=== PATIENT | male | born 1960 | race African-American/Black ===

== ENCOUNTER 2021-10-11 11:13 | Inpatient (IN) | payer OTHER ==
[2021-10-11 12:45] LABS: EOS % 3.4 % (0-4.5); HEMATOCRIT 36.1 % (35.4-49); HEMOGLOBIN 11.7 GM/dL (11.7-16.9); LYMPH % 18.1 % (8-40); MCH 34.2 pg (25.7-33.7); MCHC 32.4 g/dl (32.0-35.9); MEAN CELL VOLUME 105.6 fl (80-96); MEAN PLT VOLUME 8.5 fl (7.5-11.1); MONO % 11.4 % (3.8-10.2); NEUT % 65.1 % (42.8-82.8); PLATELET COUNT 174 10^3/uL (134-434); RBC 3.42 M/mm3 (4.00-5.60); RDW 15.1 % (11.9-15.9); WHITE BLOOD COUNT 5.1 K/mm3 (4.0-10.0)
[2021-10-11 12:56] LABS: BLOOD UREA NITROGEN 18.9 mg/dL (7-18); CALCIUM 9.4 mg/dL (8.5-10.1)
[2021-10-11 12:58] LABS: CREATININE 1.4 mg/dL (0.55-1.3)
[2021-10-11 13:01] LABS: BILIRUBIN,TOTAL 0.9 mg/dL (0.2-1); TOT PROT 7.4 g/dl (6.4-8.2)
[2021-10-11 13:02] LABS: ALBUMIN 3.8 g/dl (3.4-5.0)
[2021-10-11] MEDS: SENNOSIDES 8.6MG TABLET (FP) PO SCH (21:56)
[2021-10-11] MEDS: DOCUSATE SODIUM 100 MG CAPSULE (FP) PO SCH (21:57)
[2021-10-11] MEDS: ATORVASTATIN CA 80 MG TABLET (FP) PO SCH (21:58)
[2021-10-11] MEDS: CARVEDILOL 6.25 MG TABLET (FP) PO SCH (21:58)
[2021-10-11] MEDS: APIXABAN 5 MG TABLET PO SCH (21:58)
[2021-10-12] MEDS: LEVOTHYROXINE NA 50 MCG TABLET (FP) PO SCH (06:06)
[2021-10-12 06:24] LABS: EPI CELLS 2 /uL (0-25.1); HYALINE CASTS 0 /uL (0-3.1); URINE APPEARANCE CLEAR; URINE BACTERIA 12 /uL (0-1359); URINE BILIRUBIN NEGATIVE (NEGATIVE); URINE COLOR YELLOW; URINE GLUCOSE (UA) NEGATIVE (NEGATIVE); URINE KETONE NEGATIVE (NEGATIVE); URINE LEUK ESTERASE TRACE (NEGATIVE); URINE NITRITE NEGATIVE (NEGATIVE); URINE PROTEIN NEGATIVE (NEGATIVE); URINE RBC 1 /uL (0-23.9); URINE WBC 4 /uL (0-25.8)
[2021-10-12] MEDS: CARVEDILOL 6.25 MG TABLET (FP) PO SCH ×2 (09:52→21:36)
[2021-10-12] MEDS: LISINOPRIL 10 MG TABLET PO SCH (09:52)
[2021-10-12] MEDS: APIXABAN 5 MG TABLET PO SCH ×2 (09:52→21:36)
[2021-10-12] MEDS: CLOPIDOGREL BISULFATE 75 MG TABLET (FP) PO SCH (09:52)
[2021-10-12] MEDS: SPIRONOLACTONE 25 MG TABLET PO SCH (09:52)
[2021-10-12] MEDS: NICOTINE 21 MG/24 HOURS TOPICAL PATCH TD SCH (09:53)
[2021-10-12] MEDS ORDERED: ASPIRIN 81 MG CHEWABLE TABLETS PO SCH (10:00)
[2021-10-12] MEDS: DIVALPROEX NA *ER* EXTEND REL 250 MG TABLET.SA PO SCH ×2 (13:58→21:37)
[2021-10-12] MEDS: SENNOSIDES 8.6MG TABLET (FP) PO SCH (21:36)
[2021-10-12] MEDS: ATORVASTATIN CA 80 MG TABLET (FP) PO SCH (21:36)
[2021-10-12] MEDS: DOCUSATE SODIUM 100 MG CAPSULE (FP) PO SCH (21:36)
[2021-10-12] MEDS ORDERED: SODIUM CHLORIDE 500 ML IV STA (21:49)
[2021-10-13] MEDS: DIVALPROEX NA *ER* EXTEND REL 250 MG TABLET.SA PO SCH ×3 (05:21→21:45)
[2021-10-13] MEDS: LEVOTHYROXINE NA 50 MCG TABLET (FP) PO SCH (06:21)
[2021-10-13] MEDS: CARVEDILOL 6.25 MG TABLET (FP) PO SCH ×2 (09:45→21:45)
[2021-10-13] MEDS: SPIRONOLACTONE 25 MG TABLET PO SCH (09:45)
[2021-10-13] MEDS: LISINOPRIL 10 MG TABLET PO SCH (09:46)
[2021-10-13] MEDS: TAMSULOSIN HCL 0.4 MG CAP PO SCH (11:01)
[2021-10-13] MEDS: APIXABAN 5 MG TABLET PO SCH ×2 (11:01→21:45)
[2021-10-13] MEDS: CLOPIDOGREL BISULFATE 75 MG TABLET (FP) PO SCH (11:02)
[2021-10-13] MEDS: NICOTINE 21 MG/24 HOURS TOPICAL PATCH TD SCH ×2 (11:02→11:04)
[2021-10-13] MEDS: DOCUSATE SODIUM 100 MG CAPSULE (FP) PO SCH (21:44)
[2021-10-13] MEDS: SENNOSIDES 8.6MG TABLET (FP) PO SCH (21:45)
[2021-10-13] MEDS: ATORVASTATIN CA 80 MG TABLET (FP) PO SCH (21:45)
[2021-10-14] MEDS: DIVALPROEX NA *ER* EXTEND REL 250 MG TABLET.SA PO SCH ×3 (06:21→23:27)
[2021-10-14] MEDS: LEVOTHYROXINE NA 50 MCG TABLET (FP) PO SCH (06:21)
[2021-10-14] MEDS: CARVEDILOL 6.25 MG TABLET (FP) PO SCH ×2 (11:17→23:27)
[2021-10-14] MEDS: APIXABAN 5 MG TABLET PO SCH ×2 (11:17→23:27)
[2021-10-14] MEDS: SPIRONOLACTONE 25 MG TABLET PO SCH (11:17)
[2021-10-14] MEDS: LISINOPRIL 10 MG TABLET PO SCH (11:18)
[2021-10-14] MEDS: CLOPIDOGREL BISULFATE 75 MG TABLET (FP) PO SCH (11:18)
[2021-10-14] MEDS: NICOTINE 21 MG/24 HOURS TOPICAL PATCH TD SCH (11:18)
[2021-10-14] MEDS: TAMSULOSIN HCL 0.4 MG CAP PO SCH (11:18)
[2021-10-14] MEDS: DOCUSATE SODIUM 100 MG CAPSULE (FP) PO SCH (23:27)
[2021-10-14] MEDS: ATORVASTATIN CA 80 MG TABLET (FP) PO SCH (23:27)
[2021-10-14] MEDS: SENNOSIDES 8.6MG TABLET (FP) PO SCH (23:27)
[2021-10-15] MEDS: LEVOTHYROXINE NA 50 MCG TABLET (FP) PO SCH (06:03)
[2021-10-15] MEDS: DIVALPROEX NA *ER* EXTEND REL 250 MG TABLET.SA PO SCH ×3 (06:03→22:02)
[2021-10-15] MEDS: NICOTINE 21 MG/24 HOURS TOPICAL PATCH TD SCH (11:54)
[2021-10-15] MEDS: TAMSULOSIN HCL 0.4 MG CAP PO SCH (11:56)
[2021-10-15] MEDS: CLOPIDOGREL BISULFATE 75 MG TABLET (FP) PO SCH (11:56)
[2021-10-15] MEDS: LISINOPRIL 10 MG TABLET PO SCH (11:56)
[2021-10-15] MEDS: SPIRONOLACTONE 25 MG TABLET PO SCH (11:56)
[2021-10-15] MEDS: APIXABAN 5 MG TABLET PO SCH ×2 (11:56→22:02)
[2021-10-15] MEDS: CARVEDILOL 6.25 MG TABLET (FP) PO SCH ×2 (11:56→22:01)
[2021-10-15] MEDS: DOCUSATE SODIUM 100 MG CAPSULE (FP) PO SCH (22:01)
[2021-10-15] MEDS: SENNOSIDES 8.6MG TABLET (FP) PO SCH (22:02)
[2021-10-15] MEDS: ATORVASTATIN CA 80 MG TABLET (FP) PO SCH (22:02)
[2021-10-16] MEDS: DIVALPROEX NA *ER* EXTEND REL 250 MG TABLET.SA PO SCH ×3 (05:53→22:10)
[2021-10-16] MEDS: LEVOTHYROXINE NA 50 MCG TABLET (FP) PO SCH (06:01)
[2021-10-16] MEDS: APIXABAN 5 MG TABLET PO SCH ×2 (10:49→22:11)
[2021-10-16] MEDS: CLOPIDOGREL BISULFATE 75 MG TABLET (FP) PO SCH (10:49)
[2021-10-16] MEDS: TAMSULOSIN HCL 0.4 MG CAP PO SCH (10:58)
[2021-10-16] MEDS: NICOTINE 21 MG/24 HOURS TOPICAL PATCH TD SCH (10:58)
[2021-10-16] MEDS: SPIRONOLACTONE 25 MG TABLET PO SCH (11:01)
[2021-10-16] MEDS: LISINOPRIL 10 MG TABLET PO SCH (11:02)
[2021-10-16] MEDS: CARVEDILOL 6.25 MG TABLET (FP) PO SCH ×2 (11:02→22:10)
[2021-10-16] MEDS: DOCUSATE SODIUM 100 MG CAPSULE (FP) PO SCH (22:08)
[2021-10-16] MEDS: ATORVASTATIN CA 80 MG TABLET (FP) PO SCH (22:11)
[2021-10-16] MEDS: SENNOSIDES 8.6MG TABLET (FP) PO SCH (22:11)
[2021-10-17] MEDS: DIVALPROEX NA *ER* EXTEND REL 250 MG TABLET.SA PO SCH ×3 (05:32→22:55)
[2021-10-17] MEDS: LEVOTHYROXINE NA 50 MCG TABLET (FP) PO SCH (06:09)
[2021-10-17] MEDS: APIXABAN 5 MG TABLET PO SCH (09:45)
[2021-10-17] MEDS: CLOPIDOGREL BISULFATE 75 MG TABLET (FP) PO SCH (09:45)
[2021-10-17] MEDS: TAMSULOSIN HCL 0.4 MG CAP PO SCH (09:48)
[2021-10-17] MEDS: CARVEDILOL 6.25 MG TABLET (FP) PO SCH ×2 (09:49→22:55)
[2021-10-17] MEDS: SPIRONOLACTONE 25 MG TABLET PO SCH (09:49)
[2021-10-17] MEDS: NICOTINE 21 MG/24 HOURS TOPICAL PATCH TD SCH (09:50)
[2021-10-17] MEDS: LISINOPRIL 10 MG TABLET PO SCH (09:50)
[2021-10-17] MEDS: DOCUSATE SODIUM 100 MG CAPSULE (FP) PO SCH (22:54)
[2021-10-17] MEDS: SENNOSIDES 8.6MG TABLET (FP) PO SCH (22:55)
[2021-10-17] MEDS: ATORVASTATIN CA 80 MG TABLET (FP) PO SCH (22:55)
[2021-10-18] MEDS: APIXABAN 5 MG TABLET PO SCH ×3 (01:04→22:47)
[2021-10-18] MEDS: LEVOTHYROXINE NA 50 MCG TABLET (FP) PO SCH (06:00)
[2021-10-18] MEDS: DIVALPROEX NA *ER* EXTEND REL 250 MG TABLET.SA PO SCH ×3 (06:00→22:47)
[2021-10-18] MEDS: TAMSULOSIN HCL 0.4 MG CAP PO SCH (08:32)
[2021-10-18] MEDS: CLOPIDOGREL BISULFATE 75 MG TABLET (FP) PO SCH (11:02)
[2021-10-18] MEDS: LISINOPRIL 10 MG TABLET PO SCH (11:02)
[2021-10-18] MEDS: NICOTINE 21 MG/24 HOURS TOPICAL PATCH TD SCH (11:02)
[2021-10-18] MEDS: CARVEDILOL 6.25 MG TABLET (FP) PO SCH ×2 (11:02→22:47)
[2021-10-18] MEDS: SPIRONOLACTONE 25 MG TABLET PO SCH (11:02)
[2021-10-18] MEDS: DOCUSATE SODIUM 100 MG CAPSULE (FP) PO SCH (22:47)
[2021-10-18] MEDS: ATORVASTATIN CA 80 MG TABLET (FP) PO SCH (22:47)
[2021-10-18] MEDS: SENNOSIDES 8.6MG TABLET (FP) PO SCH (22:47)
[2021-10-19] MEDS: LEVOTHYROXINE NA 50 MCG TABLET (FP) PO SCH (06:29)
[2021-10-19] MEDS: DIVALPROEX NA *ER* EXTEND REL 250 MG TABLET.SA PO SCH ×3 (06:29→21:14)
[2021-10-19] MEDS: LISINOPRIL 10 MG TABLET PO SCH (10:43)
[2021-10-19] MEDS: TAMSULOSIN HCL 0.4 MG CAP PO SCH (10:43)
[2021-10-19] MEDS: SPIRONOLACTONE 25 MG TABLET PO SCH (10:43)
[2021-10-19] MEDS: CARVEDILOL 6.25 MG TABLET (FP) PO SCH ×2 (10:43→21:14)
[2021-10-19] MEDS: NICOTINE 21 MG/24 HOURS TOPICAL PATCH TD SCH (10:43)
[2021-10-19] MEDS: CLOPIDOGREL BISULFATE 75 MG TABLET (FP) PO SCH (10:43)
[2021-10-19] MEDS: APIXABAN 5 MG TABLET PO SCH ×2 (10:57→21:14)
[2021-10-19] MEDS: DOCUSATE SODIUM 100 MG CAPSULE (FP) PO SCH (21:14)
[2021-10-19] MEDS: ATORVASTATIN CA 80 MG TABLET (FP) PO SCH (21:14)
[2021-10-19] MEDS: SENNOSIDES 8.6MG TABLET (FP) PO SCH (21:15)
[2021-10-20] MEDS: DIVALPROEX NA *ER* EXTEND REL 250 MG TABLET.SA PO SCH ×3 (06:16→21:43)
[2021-10-20] MEDS: LEVOTHYROXINE NA 50 MCG TABLET (FP) PO SCH (06:16)
[2021-10-20] MEDS: SPIRONOLACTONE 25 MG TABLET PO SCH (09:35)
[2021-10-20] MEDS: APIXABAN 5 MG TABLET PO SCH ×2 (09:35→21:43)
[2021-10-20] MEDS: CARVEDILOL 6.25 MG TABLET (FP) PO SCH ×2 (09:35→21:43)
[2021-10-20] MEDS: CLOPIDOGREL BISULFATE 75 MG TABLET (FP) PO SCH (09:35)
[2021-10-20] MEDS: TAMSULOSIN HCL 0.4 MG CAP PO SCH (09:36)
[2021-10-20] MEDS: LISINOPRIL 10 MG TABLET PO SCH (09:36)
[2021-10-20] MEDS: NICOTINE 21 MG/24 HOURS TOPICAL PATCH TD SCH (09:36)
[2021-10-20] MEDS ORDERED: ACETAMINOPHEN 325 MG TABLET (FP) PO ONE (15:30)
[2021-10-20] MEDS: ATORVASTATIN CA 80 MG TABLET (FP) PO SCH (21:43)
[2021-10-20] MEDS: DOCUSATE SODIUM 100 MG CAPSULE (FP) PO SCH (21:43)
[2021-10-20] MEDS: SENNOSIDES 8.6MG TABLET (FP) PO SCH (21:43)
[2021-10-21] MEDS: DIVALPROEX NA *ER* EXTEND REL 250 MG TABLET.SA PO SCH ×3 (05:43→23:10)
[2021-10-21] MEDS: LEVOTHYROXINE NA 50 MCG TABLET (FP) PO SCH (06:00)
[2021-10-21] MEDS: TAMSULOSIN HCL 0.4 MG CAP PO SCH (08:53)
[2021-10-21] MEDS: CLOPIDOGREL BISULFATE 75 MG TABLET (FP) PO SCH (10:00)
[2021-10-21] MEDS: SPIRONOLACTONE 25 MG TABLET PO SCH (10:00)
[2021-10-21] MEDS: LISINOPRIL 10 MG TABLET PO SCH (10:00)
[2021-10-21] MEDS: APIXABAN 5 MG TABLET PO SCH ×2 (10:00→23:10)
[2021-10-21] MEDS: NICOTINE 21 MG/24 HOURS TOPICAL PATCH TD SCH (10:00)
[2021-10-21] MEDS: CARVEDILOL 6.25 MG TABLET (FP) PO SCH ×2 (10:00→23:10)
[2021-10-21] MEDS: DOCUSATE SODIUM 100 MG CAPSULE (FP) PO SCH (23:09)
[2021-10-21] MEDS: ATORVASTATIN CA 80 MG TABLET (FP) PO SCH (23:10)
[2021-10-21] MEDS: SENNOSIDES 8.6MG TABLET (FP) PO SCH (23:10)
[2021-10-22] MEDS: DIVALPROEX NA *ER* EXTEND REL 250 MG TABLET.SA PO SCH ×3 (06:12→22:13)
[2021-10-22] MEDS: LEVOTHYROXINE NA 50 MCG TABLET (FP) PO SCH (06:12)
[2021-10-22] MEDS: TAMSULOSIN HCL 0.4 MG CAP PO SCH (08:44)
[2021-10-22] MEDS ORDERED: MAGNESIUM SULF 50% (8.12 MEQ/2 ML-1 GM VIAL) IVPB ONE (09:11)
[2021-10-22] MEDS ORDERED: MAGNESIUM OXIDE 400 MG TABLET (FP) PO ONE (10:06)
[2021-10-22] MEDS: SPIRONOLACTONE 25 MG TABLET PO SCH (10:28)
[2021-10-22] MEDS: CARVEDILOL 6.25 MG TABLET (FP) PO SCH ×3 (10:28→22:14)
[2021-10-22] MEDS: APIXABAN 5 MG TABLET PO SCH ×2 (10:28→22:13)
[2021-10-22] MEDS: CLOPIDOGREL BISULFATE 75 MG TABLET (FP) PO SCH (10:28)
[2021-10-22] MEDS: NICOTINE 21 MG/24 HOURS TOPICAL PATCH TD SCH (10:29)
[2021-10-22] MEDS: SENNOSIDES 8.6MG TABLET (FP) PO SCH (22:13)
[2021-10-22] MEDS: ATORVASTATIN CA 80 MG TABLET (FP) PO SCH (22:13)
[2021-10-22] MEDS: DOCUSATE SODIUM 100 MG CAPSULE (FP) PO SCH (22:14)
[2021-10-23] MEDS: DIVALPROEX NA *ER* EXTEND REL 250 MG TABLET.SA PO SCH ×3 (06:18→21:27)
[2021-10-23] MEDS: LEVOTHYROXINE NA 50 MCG TABLET (FP) PO SCH (06:18)
[2021-10-23] MEDS: SPIRONOLACTONE 25 MG TABLET PO SCH (10:35)
[2021-10-23] MEDS: CARVEDILOL 6.25 MG TABLET (FP) PO SCH ×2 (10:35→21:27)
[2021-10-23] MEDS: APIXABAN 5 MG TABLET PO SCH ×2 (10:38→21:27)
[2021-10-23] MEDS: CLOPIDOGREL BISULFATE 75 MG TABLET (FP) PO SCH (10:38)
[2021-10-23] MEDS: NICOTINE 21 MG/24 HOURS TOPICAL PATCH TD SCH (10:39)
[2021-10-23] MEDS: TAMSULOSIN HCL 0.4 MG CAP PO SCH (10:39)
[2021-10-23] MEDS: SENNOSIDES 8.6MG TABLET (FP) PO SCH (21:27)
[2021-10-23] MEDS: ATORVASTATIN CA 80 MG TABLET (FP) PO SCH (21:27)
[2021-10-23] MEDS: DOCUSATE SODIUM 100 MG CAPSULE (FP) PO SCH (21:27)
[2021-10-24] MEDS: DIVALPROEX NA *ER* EXTEND REL 250 MG TABLET.SA PO SCH ×3 (06:24→21:15)
[2021-10-24] MEDS: LEVOTHYROXINE NA 50 MCG TABLET (FP) PO SCH (06:25)
[2021-10-24] MEDS: CLOPIDOGREL BISULFATE 75 MG TABLET (FP) PO SCH (09:49)
[2021-10-24] MEDS: APIXABAN 5 MG TABLET PO SCH ×2 (09:49→21:15)
[2021-10-24] MEDS: SPIRONOLACTONE 25 MG TABLET PO SCH (09:51)
[2021-10-24] MEDS: NICOTINE 21 MG/24 HOURS TOPICAL PATCH TD SCH (09:51)
[2021-10-24] MEDS: CARVEDILOL 6.25 MG TABLET (FP) PO SCH ×2 (09:51→21:15)
[2021-10-24] MEDS: TAMSULOSIN HCL 0.4 MG CAP PO SCH (09:52)
[2021-10-24] MEDS: DOCUSATE SODIUM 100 MG CAPSULE (FP) PO SCH (21:15)
[2021-10-24] MEDS: SENNOSIDES 8.6MG TABLET (FP) PO SCH (21:16)
[2021-10-24] MEDS: ATORVASTATIN CA 80 MG TABLET (FP) PO SCH (21:16)
[2021-10-25] MEDS: LEVOTHYROXINE NA 50 MCG TABLET (FP) PO SCH (06:43)
[2021-10-25] MEDS: DIVALPROEX NA *ER* EXTEND REL 250 MG TABLET.SA PO SCH ×3 (06:43→22:09)
[2021-10-25] MEDS: TAMSULOSIN HCL 0.4 MG CAP PO SCH (10:17)
[2021-10-25] MEDS: SPIRONOLACTONE 25 MG TABLET PO SCH (10:17)
[2021-10-25] MEDS: CARVEDILOL 6.25 MG TABLET (FP) PO SCH ×2 (10:17→22:10)
[2021-10-25] MEDS: APIXABAN 5 MG TABLET PO SCH ×2 (10:17→22:09)
[2021-10-25] MEDS: CLOPIDOGREL BISULFATE 75 MG TABLET (FP) PO SCH (10:18)
[2021-10-25] MEDS: NICOTINE 21 MG/24 HOURS TOPICAL PATCH TD SCH (10:18)
[2021-10-25] MEDS ORDERED: DOCUSATE NA 100 MG/10 ML UNIT-DOSE CUPS PO ONE (14:22)
[2021-10-25] MEDS ORDERED: LORazepam 2 MG/ML SDV VIAL IM ONE (15:21)
[2021-10-25] MEDS: LORazepam 1 MG TABLET PO PRN ×2 (15:23→15:41)
[2021-10-25] MEDS: ATORVASTATIN CA 80 MG TABLET (FP) PO SCH (22:09)
[2021-10-25] MEDS: DOCUSATE SODIUM 100 MG CAPSULE (FP) PO SCH (22:10)
[2021-10-25] MEDS: SENNOSIDES 8.6MG TABLET (FP) PO SCH (22:10)
[2021-10-26] MEDS: LEVOTHYROXINE NA 50 MCG TABLET (FP) PO SCH (06:18)
[2021-10-26] MEDS: DIVALPROEX NA *ER* EXTEND REL 250 MG TABLET.SA PO SCH ×3 (06:18→23:05)
[2021-10-26] MEDS: TAMSULOSIN HCL 0.4 MG CAP PO SCH (09:18)
[2021-10-26] MEDS: CARVEDILOL 6.25 MG TABLET (FP) PO SCH ×2 (09:18→23:05)
[2021-10-26] MEDS: SPIRONOLACTONE 25 MG TABLET PO SCH (09:18)
[2021-10-26] MEDS: NICOTINE 21 MG/24 HOURS TOPICAL PATCH TD SCH (09:19)
[2021-10-26] MEDS: APIXABAN 5 MG TABLET PO SCH ×2 (09:19→23:06)
[2021-10-26] MEDS: CLOPIDOGREL BISULFATE 75 MG TABLET (FP) PO SCH (09:19)
[2021-10-26 15:23] VITALS: BMI 21.5
[2021-10-26] MEDS: DOCUSATE SODIUM 100 MG CAPSULE (FP) PO SCH (23:05)
[2021-10-26] MEDS: SENNOSIDES 8.6MG TABLET (FP) PO SCH (23:06)
[2021-10-26] MEDS: ATORVASTATIN CA 80 MG TABLET (FP) PO SCH (23:06)
[2021-10-27] MEDS: DIVALPROEX NA *ER* EXTEND REL 250 MG TABLET.SA PO SCH ×3 (06:03→22:10)
[2021-10-27] MEDS: LEVOTHYROXINE NA 50 MCG TABLET (FP) PO SCH (06:03)
[2021-10-27] MEDS: MULTIVITAMINS (DAILY MVI) TABLET (FP) PO SCH (10:12)
[2021-10-27] MEDS: CARVEDILOL 6.25 MG TABLET (FP) PO SCH ×2 (10:12→22:09)
[2021-10-27] MEDS: TAMSULOSIN HCL 0.4 MG CAP PO SCH (10:12)
[2021-10-27] MEDS: CLOPIDOGREL BISULFATE 75 MG TABLET (FP) PO SCH (10:12)
[2021-10-27] MEDS: SPIRONOLACTONE 25 MG TABLET PO SCH (10:12)
[2021-10-27] MEDS: NICOTINE 21 MG/24 HOURS TOPICAL PATCH TD SCH (10:12)
[2021-10-27] MEDS: APIXABAN 5 MG TABLET PO SCH ×2 (10:12→22:10)
[2021-10-27] MEDS: DOCUSATE SODIUM 100 MG CAPSULE (FP) PO SCH (22:09)
[2021-10-27] MEDS: SENNOSIDES 8.6MG TABLET (FP) PO SCH (22:10)
[2021-10-27] MEDS: ATORVASTATIN CA 80 MG TABLET (FP) PO SCH (22:10)
[2021-10-28] MEDS: LEVOTHYROXINE NA 50 MCG TABLET (FP) PO SCH (06:52)
[2021-10-28] MEDS: DIVALPROEX NA *ER* EXTEND REL 250 MG TABLET.SA PO SCH ×3 (06:52→22:41)
[2021-10-28] MEDS: SPIRONOLACTONE 25 MG TABLET PO SCH (09:16)
[2021-10-28] MEDS: APIXABAN 5 MG TABLET PO SCH ×2 (09:16→22:41)
[2021-10-28] MEDS: CARVEDILOL 6.25 MG TABLET (FP) PO SCH ×2 (09:16→22:41)
[2021-10-28] MEDS: TAMSULOSIN HCL 0.4 MG CAP PO SCH (09:16)
[2021-10-28] MEDS: CLOPIDOGREL BISULFATE 75 MG TABLET (FP) PO SCH (09:17)
[2021-10-28] MEDS: NICOTINE 21 MG/24 HOURS TOPICAL PATCH TD SCH (09:17)
[2021-10-28] MEDS: MULTIVITAMINS (DAILY MVI) TABLET (FP) PO SCH (09:17)
[2021-10-28] MEDS: ATORVASTATIN CA 80 MG TABLET (FP) PO SCH (22:41)
[2021-10-28] MEDS: SENNOSIDES 8.6MG TABLET (FP) PO SCH (22:41)
[2021-10-28] MEDS: DOCUSATE SODIUM 100 MG CAPSULE (FP) PO SCH (22:41)
[2021-10-29] MEDS: DIVALPROEX NA *ER* EXTEND REL 250 MG TABLET.SA PO SCH ×3 (05:16→22:20)
[2021-10-29] MEDS: APIXABAN 5 MG TABLET PO SCH ×2 (09:44→22:20)
[2021-10-29] MEDS: CARVEDILOL 6.25 MG TABLET (FP) PO SCH ×2 (09:44→22:20)
[2021-10-29] MEDS: LEVOTHYROXINE NA 50 MCG TABLET (FP) PO SCH (09:44)
[2021-10-29] MEDS: SPIRONOLACTONE 25 MG TABLET PO SCH (09:44)
[2021-10-29] MEDS: TAMSULOSIN HCL 0.4 MG CAP PO SCH (09:44)
[2021-10-29] MEDS: NICOTINE 21 MG/24 HOURS TOPICAL PATCH TD SCH (09:45)
[2021-10-29] MEDS: CLOPIDOGREL BISULFATE 75 MG TABLET (FP) PO SCH (09:45)
[2021-10-29] MEDS: MULTIVITAMINS (DAILY MVI) TABLET (FP) PO SCH (09:45)
[2021-10-29] MEDS: ATORVASTATIN CA 80 MG TABLET (FP) PO SCH (22:20)
[2021-10-29] MEDS: DOCUSATE SODIUM 100 MG CAPSULE (FP) PO SCH (22:20)
[2021-10-29] MEDS: SENNOSIDES 8.6MG TABLET (FP) PO SCH (22:21)
[2021-10-30] MEDS: LEVOTHYROXINE NA 50 MCG TABLET (FP) PO SCH (06:41)
[2021-10-30] MEDS: DIVALPROEX NA *ER* EXTEND REL 250 MG TABLET.SA PO SCH ×3 (06:41→21:50)
[2021-10-30] MEDS: CLOPIDOGREL BISULFATE 75 MG TABLET (FP) PO SCH (09:17)
[2021-10-30] MEDS: SPIRONOLACTONE 25 MG TABLET PO SCH (09:17)
[2021-10-30] MEDS: APIXABAN 5 MG TABLET PO SCH ×2 (09:17→21:51)
[2021-10-30] MEDS: CARVEDILOL 6.25 MG TABLET (FP) PO SCH ×2 (09:17→21:50)
[2021-10-30] MEDS: NICOTINE 21 MG/24 HOURS TOPICAL PATCH TD SCH (09:17)
[2021-10-30] MEDS: TAMSULOSIN HCL 0.4 MG CAP PO SCH (09:17)
[2021-10-30] MEDS: MULTIVITAMINS (DAILY MVI) TABLET (FP) PO SCH (09:18)
[2021-10-30] MEDS: DOCUSATE SODIUM 100 MG CAPSULE (FP) PO SCH (21:50)
[2021-10-30] MEDS: ATORVASTATIN CA 80 MG TABLET (FP) PO SCH (21:51)
[2021-10-30] MEDS: SENNOSIDES 8.6MG TABLET (FP) PO SCH (21:51)
[2021-10-31] MEDS: DIVALPROEX NA *ER* EXTEND REL 250 MG TABLET.SA PO SCH ×3 (06:32→21:35)
[2021-10-31] MEDS: LEVOTHYROXINE NA 50 MCG TABLET (FP) PO SCH (06:33)
[2021-10-31] MEDS: CLOPIDOGREL BISULFATE 75 MG TABLET (FP) PO SCH (09:28)
[2021-10-31] MEDS: CARVEDILOL 6.25 MG TABLET (FP) PO SCH ×2 (09:28→21:35)
[2021-10-31] MEDS: APIXABAN 5 MG TABLET PO SCH ×2 (09:28→21:35)
[2021-10-31] MEDS: NICOTINE 21 MG/24 HOURS TOPICAL PATCH TD SCH (09:28)
[2021-10-31] MEDS: TAMSULOSIN HCL 0.4 MG CAP PO SCH (09:28)
[2021-10-31] MEDS: SPIRONOLACTONE 25 MG TABLET PO SCH (09:28)
[2021-10-31] MEDS: MULTIVITAMINS (DAILY MVI) TABLET (FP) PO SCH (09:29)
[2021-10-31] MEDS: SENNOSIDES 8.6MG TABLET (FP) PO SCH (21:35)
[2021-10-31] MEDS: ATORVASTATIN CA 80 MG TABLET (FP) PO SCH (21:35)
[2021-10-31] MEDS: DOCUSATE SODIUM 100 MG CAPSULE (FP) PO SCH (21:35)
[2021-11-01] MEDS: LEVOTHYROXINE NA 50 MCG TABLET (FP) PO SCH (06:14)
[2021-11-01] MEDS: DIVALPROEX NA *ER* EXTEND REL 250 MG TABLET.SA PO SCH ×3 (06:14→22:23)
[2021-11-01] MEDS: SPIRONOLACTONE 25 MG TABLET PO SCH (09:02)
[2021-11-01] MEDS: TAMSULOSIN HCL 0.4 MG CAP PO SCH (09:02)
[2021-11-01] MEDS: APIXABAN 5 MG TABLET PO SCH ×2 (09:03→22:23)
[2021-11-01] MEDS: MULTIVITAMINS (DAILY MVI) TABLET (FP) PO SCH (09:03)
[2021-11-01] MEDS: CARVEDILOL 6.25 MG TABLET (FP) PO SCH ×2 (09:03→22:23)
[2021-11-01] MEDS: NICOTINE 21 MG/24 HOURS TOPICAL PATCH TD SCH (09:03)
[2021-11-01] MEDS: CLOPIDOGREL BISULFATE 75 MG TABLET (FP) PO SCH (09:03)
[2021-11-01] MEDS: DOCUSATE SODIUM 100 MG CAPSULE (FP) PO SCH (22:22)
[2021-11-01] MEDS: LIDOCAINE 5% TOPICAL PATCH TP SCH (22:22)
[2021-11-01] MEDS: LIDOCAINE PATCH REMOVAL MC SCH (22:23)
[2021-11-01] MEDS: ATORVASTATIN CA 80 MG TABLET (FP) PO SCH (22:23)
[2021-11-01] MEDS: SENNOSIDES 8.6MG TABLET (FP) PO SCH (22:23)
[2021-11-02] MEDS: LEVOTHYROXINE NA 50 MCG TABLET (FP) PO SCH (06:16)
[2021-11-02] MEDS: DIVALPROEX NA *ER* EXTEND REL 250 MG TABLET.SA PO SCH ×3 (06:16→21:45)
[2021-11-02] MEDS: CARVEDILOL 6.25 MG TABLET (FP) PO SCH ×2 (09:00→21:44)
[2021-11-02] MEDS: SPIRONOLACTONE 25 MG TABLET PO SCH (09:00)
[2021-11-02] MEDS: TAMSULOSIN HCL 0.4 MG CAP PO SCH (09:00)
[2021-11-02] MEDS: NICOTINE 21 MG/24 HOURS TOPICAL PATCH TD SCH (09:01)
[2021-11-02] MEDS: CLOPIDOGREL BISULFATE 75 MG TABLET (FP) PO SCH (09:01)
[2021-11-02] MEDS: LIDOCAINE 5% TOPICAL PATCH TP SCH (09:01)
[2021-11-02] MEDS: MULTIVITAMINS (DAILY MVI) TABLET (FP) PO SCH (09:01)
[2021-11-02] MEDS: APIXABAN 5 MG TABLET PO SCH ×2 (09:01→21:45)
[2021-11-02 09:22] LABS: HEMATOCRIT 35.7 % (35.4-49); HEMOGLOBIN 11.9 GM/dL (11.7-16.9); MCH 34.6 pg (25.7-33.7); MCHC 33.4 g/dl (32.0-35.9); MEAN CELL VOLUME 103.7 fl (80-96); MEAN PLT VOLUME 9.2 fl (7.5-11.1); PLATELET COUNT 157 10^3/uL (134-434); RBC 3.44 M/mm3 (4.00-5.60); RDW 14.1 % (11.9-15.9); WHITE BLOOD COUNT 5.6 K/mm3 (4.0-10.0)
[2021-11-02 09:47] LABS: ALBUMIN 3.9 g/dl (3.4-5.0); BLOOD UREA NITROGEN 30.3 mg/dL (7-18); CALCIUM 10.1 mg/dL (8.5-10.1)
[2021-11-02 09:51] LABS: CREATININE 1.5 mg/dL (0.55-1.3)
[2021-11-02 09:52] LABS: BILIRUBIN,TOTAL 1.5 mg/dL (0.2-1); TOT PROT 7.5 g/dl (6.4-8.2)
[2021-11-02] MEDS: DOCUSATE SODIUM 100 MG CAPSULE (FP) PO SCH (21:44)
[2021-11-02] MEDS: LIDOCAINE PATCH REMOVAL MC SCH (21:45)
[2021-11-02] MEDS: SENNOSIDES 8.6MG TABLET (FP) PO SCH (21:45)
[2021-11-02] MEDS: ATORVASTATIN CA 80 MG TABLET (FP) PO SCH (21:45)
[2021-11-03] MEDS: DIVALPROEX NA *ER* EXTEND REL 250 MG TABLET.SA PO SCH ×3 (06:28→23:20)
[2021-11-03] MEDS: LEVOTHYROXINE NA 50 MCG TABLET (FP) PO SCH (06:28)
[2021-11-03] MEDS: TAMSULOSIN HCL 0.4 MG CAP PO SCH (08:25)
[2021-11-03] MEDS: APIXABAN 5 MG TABLET PO SCH ×2 (09:50→23:20)
[2021-11-03] MEDS: SPIRONOLACTONE 25 MG TABLET PO SCH (09:50)
[2021-11-03] MEDS: LIDOCAINE 5% TOPICAL PATCH TP SCH (09:50)
[2021-11-03] MEDS: CARVEDILOL 6.25 MG TABLET (FP) PO SCH ×2 (09:50→23:19)
[2021-11-03] MEDS: MULTIVITAMINS (DAILY MVI) TABLET (FP) PO SCH (09:52)
[2021-11-03] MEDS: CLOPIDOGREL BISULFATE 75 MG TABLET (FP) PO SCH (09:52)
[2021-11-03] MEDS: NICOTINE 21 MG/24 HOURS TOPICAL PATCH TD SCH (09:52)
[2021-11-03] MEDS: DOCUSATE SODIUM 100 MG CAPSULE (FP) PO SCH (23:19)
[2021-11-03] MEDS: ATORVASTATIN CA 80 MG TABLET (FP) PO SCH (23:20)
[2021-11-03] MEDS: LIDOCAINE PATCH REMOVAL MC SCH (23:20)
[2021-11-03] MEDS: SENNOSIDES 8.6MG TABLET (FP) PO SCH (23:20)
[2021-11-04] MEDS: DIVALPROEX NA *ER* EXTEND REL 250 MG TABLET.SA PO SCH ×3 (06:35→21:53)
[2021-11-04] MEDS: LEVOTHYROXINE NA 50 MCG TABLET (FP) PO SCH (06:36)
[2021-11-04] MEDS: TAMSULOSIN HCL 0.4 MG CAP PO SCH (07:55)
[2021-11-04] MEDS: MULTIVITAMINS (DAILY MVI) TABLET (FP) PO SCH (09:11)
[2021-11-04] MEDS: NICOTINE 21 MG/24 HOURS TOPICAL PATCH TD SCH (09:11)
[2021-11-04] MEDS: CARVEDILOL 6.25 MG TABLET (FP) PO SCH ×2 (09:11→21:53)
[2021-11-04] MEDS: CLOPIDOGREL BISULFATE 75 MG TABLET (FP) PO SCH (09:11)
[2021-11-04] MEDS: LIDOCAINE 5% TOPICAL PATCH TP SCH (09:11)
[2021-11-04] MEDS: APIXABAN 5 MG TABLET PO SCH ×2 (09:11→21:54)
[2021-11-04] MEDS: SPIRONOLACTONE 25 MG TABLET PO SCH (09:11)
[2021-11-04] MEDS: DOCUSATE SODIUM 100 MG CAPSULE (FP) PO SCH (21:53)
[2021-11-04] MEDS: ATORVASTATIN CA 80 MG TABLET (FP) PO SCH (21:54)
[2021-11-04] MEDS: SENNOSIDES 8.6MG TABLET (FP) PO SCH (21:54)
[2021-11-04] MEDS: LIDOCAINE PATCH REMOVAL MC SCH (21:54)
[2021-11-05] MEDS: DIVALPROEX NA *ER* EXTEND REL 250 MG TABLET.SA PO SCH ×2 (05:53→14:16)
[2021-11-05] MEDS: LEVOTHYROXINE NA 50 MCG TABLET (FP) PO SCH (06:07)
[2021-11-05 07:13] VITALS: RESP 20
[2021-11-05] MEDS: APIXABAN 5 MG TABLET PO SCH (11:01)
[2021-11-05] MEDS: TAMSULOSIN HCL 0.4 MG CAP PO SCH (11:01)
[2021-11-05] MEDS: SPIRONOLACTONE 25 MG TABLET PO SCH (11:01)
[2021-11-05] MEDS: CARVEDILOL 6.25 MG TABLET (FP) PO SCH (11:01)
[2021-11-05] MEDS: LIDOCAINE 5% TOPICAL PATCH TP SCH (11:02)
[2021-11-05] MEDS: NICOTINE 21 MG/24 HOURS TOPICAL PATCH TD SCH (11:03)
[2021-11-05] MEDS: MULTIVITAMINS (DAILY MVI) TABLET (FP) PO SCH (11:06)
[2021-11-05] MEDS: CLOPIDOGREL BISULFATE 75 MG TABLET (FP) PO SCH (11:06)
[2021-11-05 15:24] VITALS: BP 100/70; PULSE 96; TEMP 98.1
== END 2021-11-05 17:20 | DRG 760 ==
LOC: JER 11:13 → JERBED 11:41 → UNDOADMOB 11:41 → INTOOBSV 18:03 → OBSVTOIN 18:03 → J5S 19:55 → JERBED 19:55 → J5S 10-12 14:15 → JERBED 10-12 14:15 → J4S 10-20 22:07 → J6S 10-21 23:54 → J7W 10-22 12:29 → OBSVTOIN 10-26 12:07
PROVIDERS: ADMIT Internal Medicine
DX: R45.1 Restlessness and agitation (principal); N17.9 Acute kidney failure, unspecified; I13.0 Hypertensive heart and chronic kidney disease with heart failure and stage 1 through stage 4 chronic kidney disease, or unspecified chronic kidney disease; R56.9 Unspecified convulsions; I50.22 Chronic systolic (congestive) heart failure; F79 Unspecified intellectual disabilities; E03.9 Hypothyroidism, unspecified; I25.10 Atherosclerotic heart disease of native coronary artery without angina pectoris; Z72.811 Adult antisocial behavior; E78.5 Hyperlipidemia, unspecified; F32.9 Major depressive disorder, single episode, unspecified; R07.89 Other chest pain; N18.9 Chronic kidney disease, unspecified; N40.0 Benign prostatic hyperplasia without lower urinary tract symptoms
CPT/HCPCS: 36415; 70450-TC; 71045-TC-FY; 76775-TC; 76856-TC; 80053; 81003; 82436; 82570; 82962; 84133; 84156; 84300; 85025; 85027; 93005; 93010; 93306-TC; 97116-GP; 97162-GP; 99285-25; C9803-CS; G0378; U0003; U0005